=== PATIENT | male | born 2005 | race Caucasian/White ===

== ENCOUNTER 2024-02-01 17:18 | Emergency (ER) | payer OTHER, SELFPAY ==
--- NOTE | ~2024-02-01 | XR_ITS ---
EXAM: XR shoulder RT min 2V DATE: 02/01/2024 17:43 HISTORY: injury . COMPARISON: None available. FINDINGS: Normal mineralization. No fracture. Slight elevation of the distal clavicle with respect t o the acromion. Borderline AC joint widening. No lytic or blastic lesion. Joint spaces are maintained . No erosion or periosteal change. Soft tissues within normal limits. IMPRESSION: Findings suspicious for AC joint injury, correlate for pain/tenderness. Reviewed, dictated and finalized at location K. IMPRESSION: Findings suspicious for AC joint injury, correlate for pain/tendern ess.
[2024-02-01 17:20] VITALS: BP 120/67; PULSE 78; RESP 20; TEMP 36.8; O2SAT 100
--- NOTE | 2024-02-01 17:39 | ED.UPPEXIN ---
HPI - Extremity Injury (Upper) General Chief Complaint: Extremity Injury, Upper Stated Complaint: right shoulder pain Time Seen by Provider: 02/01/24 17:33 History of Present Illness HPI narrative: Patient states that he was playing pickleball and dove for the ball, landing on concrete, hurting his right shoulder. Denies any new numbness or tingling, he does state that it hurts and feels like someone squeezing on his shoulder. Related Data Allergies Allergy/AdvReac Type Severity Reaction Status Date / Time Penicillins Allergy Unknown Rash Verified 02/01/24 17:23 Review of Systems Review of Systems: All systems reviewed & are unremarkable except as noted in HPI and below Exam Narrative: EXAMINATION OF ORGAN SYSTEMS/BODY AREAS: Constitutional: Vital signs per nursing GENERAL:[No acute distress, non-toxic appearing.] HEAD: Normal with no signs of head trauma. EYES: EOMI, conjunctiva normal ENT: Hearing grossly intact LUNGS: Nonlabored breathing. HEART: [Regular rate and rhythm], normal radial pulses ABD: No distension EXT: Normal range of motion, some slight tenderness to the right shoulder, no obvious deformity SKIN: [No rashes or lesions.] NEURO: [Alert and oriented x 3. No gross focal sensory or strength deficits.] PSYCH: Normal affect Course Vital Signs Vital signs: Vital Signs Temperature 98.3 F 02/01/24 17:20 Pulse Rate 78 02/01/24 17:20 Respiratory Rate 20 02/01/24 17:20 Blood Pressure 120/67 02/01/24 17:20 Pulse Oximetry 100 02/01/24 17:20 Oxygen Delivery Room Air 02/01/24 17:20 Temperature 98.3 F 02/01/24 17:20 Pulse Rate 78 02/01/24 17:20 Respiratory Rate 20 02/01/24 17:20 Blood Pressure 120/67 02/01/24 17:20 Pulse Oximetry 100 02/01/24 17:20 Oxygen Delivery Room Air 02/01/24 17:20 MDM - Extremity Injury (Upper) MDM Narrative Medical decision making narrative: Patient presents after shoulder injury while playing pickle ball, he is neurovascularly intact, though there is pain with movement of his right shoulder, x-ray obtained here does show some AC separation on my own independent interpretation and per Radiology, he will be placed in a sling and have him follow-up with Orthopedics with return precautions. Discharge Plan Discharge Clinical Impression: AC separation Patient Disposition: Home, Self-Care Condition: Stable Instructions: Antibiotic Form, Shoulder Sprain (ED) Additional Instructions: You can take ibuprofen and Tylenol for pain, use ice, and keep your arm in the sling until you see the orthopedic doctor. Try not to use arm too much. Follow-up/Referrals: Dariel Wells MD [Physician] - 2 Days Izabela Coelho MD [Primary Care Provider] - Stand Alone Forms: Work/School Release IP
[2024-02-01] MEDS: IBUPROFEN 600 MG TABLET PO (18:09)
== END 2024-02-01 18:13 | disposition home or self-care (01) ==
PROVIDERS: Emergency Provider Emergency Medicine; PCP Pediatrics
DX: S43.101A Unspecified dislocation of right acromioclavicular joint, initial encounter (principal); W18.39XA Other fall on same level, initial encounter
CPT/HCPCS: 73030; 99283; A4565; A9270

== ENCOUNTER 2025-04-10 08:49 | Outpatient (CLI) | payer OTHER, SELFPAY ==
--- NOTE | ~2025-04-10 | US_ITS ---
US right upper quadrant INDICATION: Elevated bilirubin PROCEDURE: Realtime right upper abdominal ultrasound. COMPARISON: No prior studies for comparison. FINDINGS: The pancreas is normal without focal mass or pancreatic ductal dilation. Liver echotexture is normal without focal mass or intrahepatic biliary dilatation. There is normal directional flow i n the portal vein. There are 2 nonshadowing nonmobile echogenic foci in the gallbladder lumen consistent with gallbladde r polyps measuring 4 mm or less. Common bile duct measures 2 mm. No sonographic Ball's sign. IMPRESSION: 1: Gallbladder polyps. Reviewed, dictated and finalized at location B. IMPRESSION: 1: Gallbladder polyps.
== END 2025-04-10 08:50 | disposition home or self-care (01) ==
LOC: MICIMG 08:49
PROVIDERS: PCP Physician Assistant; Visit Provider Physician Assistant
DX: R17 Unspecified jaundice (principal); K82.4 Cholesterolosis of gallbladder
CPT/HCPCS: 76705